=== PATIENT | female | born 1965 | race Caucasian/White ===

== ENCOUNTER → 2016-09-08 | Outpatient (CLI) | payer BC ==
[~2016-09-08] MED LIST: AMOX1TAB12 PO
[2016-09-08 16:06] VITALS: BP 122/70
--- NOTE | 2016-09-08 16:06 | Urgent Care T Sheet Gen (E) ---
Intake General Temperature (Fahrenheit): 98.6 Pulse: 58 Blood Pressure Systolic: 122 Blood Pressure Diastolic: 70 Respirations: 22 SPO2: 97 Description of Symptoms Patient presents with illness x 9 days. Patient notes sinus and chest congestion. Also been coughing. Cough is so severe at times that it upset her stomach. no fever. Been taking Mucinex DM without improvement. History of Present Illness Home Meds Active Scripts Amoxicillin/Clavulanate Potassium (Augmentin 875mg/125mg)1 Each Tablet1 Tab PO BID #20 TAB Ref 0 Prov:VERONICA DUARTE 09/08/16 Respiratory Constitutional Symptoms: No Fever, Malaise EENTM: Nose Congestion Respiratory: Cough Short of breathNo Wheezing Cardiovascular: No symptoms reported Gastrointestinal/Abdominal: Nausea All Other Systems Reviewed Remaining Systems: All other systems reviewed with negative findings Physical Exam Physical Exam General Appearance: WD/WN No apparent distress Eyes, Ears, Nose, Throat Ex: TMs normal Pharynx normal (cobblestone appearance ) Other (nasal congestion with clear drainage) Neck Exam: SuppleNo Lymphadenopathy Respiratory Exam: Lungs clear Normal breath sounds Cardiovascular Exam: Regular rate, rhythm Departure Urgent Care Impression Impression: Primary Impression: Cough Departure Disposition: HOME OR SELF-CARE Condition: Stable Referrals: SARAHY MCCALLUM MD (PCP) Additional Instructions: I have started the patient on Augmentin for treatment. I am treating based on length of illness and not necessarily severity of illness. Her lungs were clear however her O2 saturation was slightly low. Patient states her O2 was low the last time she was seen. I suggested she try Claritin. She kept clearing her throat and stated it feels like "there's a frog in there" Return as needed Patient understands DC instructions. All questions were answered. Scripts Amoxicillin/Clavulanate Potassium (Augmentin 875mg/125mg)1 Each Tablet1 Tab PO BID #20 TAB Ref 0 Prov:VERONICA DUARTE 09/08/16 End of report . VERONICA DUARTE Sep 08, 2016 11:16
== END ==
LOC: MHUC 10:36
PROVIDERS: ATTEND Physician Assistant
DX: R05 Cough (principal)
CPT/HCPCS: 99213